=== PATIENT | female | born 1955 | race Caucasian/White ===

== ENCOUNTER → 2016-08-06 | Outpatient (CLI) | payer OTHER ==
--- NOTE | 2016-08-06 17:09 | CONS ---
DATE OF CONSULTATION: REASON FOR CONSULTATION: Sleep apnea. This is a 61-year-old female patient with known history of extensive environmental allergies and previous episodes of anaphylaxis coming in for a few episodes of apneas, where she woke up from sleep stating that her throat was completely closed and she was gasping for air. This is a new symptom and she has never had symptoms similar to this before. She drinks around 2 to 4 glasses of wine every week, and she is not able to make an association between these apneic events and her alcohol drinking. She prefers to sleep on her back. She has gained approximately 7 pounds over the past one year. She has occasional snoring. She typically goes to bed between 9 and 10 p.m. and she wakes up at 6:45 a.m. in the morning. She was working in [place] and she had a long commute between [place] and [place] on a daily basis; at times she has pulled into a rest area to take a nap, as the patient would feel very tired and fatigued. She has never been involved in a motor vehicle accident, never been diagnosed having any sleep breathing disorder. No restlessness in the lower extremities. No family history of obstructive sleep apnea. No other complaints otherwise. PAST MEDICAL HISTORY: 1. Atopic disease with multiple environmental allergies, including ALLERGY TO DUST, MOLD, POLLEN, ANIMAL DANDRUFF, TREES. 2. Single episode of anaphylaxis; exact etiology has not been clear, although this is suspected to be related to mold exposure. Past surgical history includes: 1. Dental implant. 2. Resection of a ganglion cyst. DRUG ALLERGIES: NOT KNOWN. Outpatient medication list includes: 1. Multivitamin. 2. Melatonin. 3. Biotin. 4. Vitamin B. 5. Vitamin C. 6. Fish oil. 7. Calcium. 8. Benadryl as needed. SOCIAL HISTORY: Nonsmoker. No history of alcohol. No history of IV drugs. FAMILY HISTORY: Noncontributory. REVIEW OF SYSTEMS: Twelve-point review of systems was done, and the positive findings were all mentioned above in the history of present illness. BP is 134/82, pulse 72, respiratory rate 16, temperature 98.1, saturation 96% on room air. Weight is 189. Height is 5 feet 3 inches. BMI is 33.4. Neck size is 14-1/2. GENERAL APPEARANCE: Calm, comfortable. HEENT: Mallampati class IV. There is no goiter or neck masses. LUNGS: Clear to auscultation. HEART: Heart sounds are regular rate and rhythm. Normal S1, S2. ABDOMEN: Soft, nontender. No organomegaly. EXTREMITIES: No edema. No cyanosis or clubbing. IMPRESSION: 1. Obstructive sleep apnea suspected. The patient was involved in 2 episodes of apneas where she felt her throat close. She has also some degree of hypersomnia and sleepiness, although her [place] score is only 6. 2. Body mass index of 33.4. 3. Atopic disease with multiple environmental allergies. 4. History of anaphylaxis. PLAN: There is some degree of suspicion that the patient may have an underlying obstructive sleep apnea. She was asked to lose weight. She was asked to sleep in a sidewise body position. Strictly no alcohol drinking, especially 3 to 4 hours prior to bedtime. Proceed with a home sleep study to investigate this patient further for any sleep breathing disorder and treat accordingly.
== END | disposition home or self-care (01) ==
CPT/HCPCS: 99211

== ENCOUNTER → 2017-11-21 | Outpatient (CLI) | payer BC ==
--- NOTE | 2017-11-24 13:56 | MM ---
Reason for exam: screening (asymptomatic). Last mammogram was performed 1 year and 5 months ago. History: Patient is postmenopausal and is nulliparous. Family history of breast cancer in mother at age 50. Physical Findings: A clinical breast exam by your physician is recommended on an annual basis and results should be correlated with mammographic findings. MG 3D Screening Mammo W/Cad Bilateral CC and MLO view(s) were taken. Prior study comparison: July 05, 2016, bilateral MG 3d screening mammo w/cad. June 30, 2015, mammogram, performed at [facility]. The breast tissue is heterogeneously dense. This may lower the sensitivity of mammography. Finding: There are typically benign circumscribed masses in both breasts back to 2015. No suspicious abnormality. No significant changes in finding since July 05, 2016 and June 30, 2015. ASSESSMENT: Benign, BI-RAD 2 RECOMMENDATION: Routine screening mammogram of both breasts in 1 year.
== END | disposition home or self-care (01) ==
LOC: RADMAMWWP 17:02
PROVIDERS: ATTEND Internal Medicine
DX: Z12.31 Encounter for screening mammogram for malignant neoplasm of breast (principal)
CPT/HCPCS: 77063; 77067

== ENCOUNTER → 2018-02-25 | Outpatient (CLI) | payer BC ==
--- NOTE | 2018-02-25 11:01 | XR ---
EXAMINATION TYPE: XR chest 2V DATE OF EXAM: 02/25/2018 COMPARISON: 08/16/2014 HISTORY: Newly diagnosed asthma. Shortness of breath. TECHNIQUE: Frontal and lateral views of the chest are obtained. FINDINGS: There is no focal air space opacity, pleural effusion, or pneumothorax seen. The cardiac silhouette size is within normal limits. The osseous structures are intact. Minimal multilevel dege nerative changes of the thoracic spine are seen. IMPRESSION: No acute cardiopulmonary process.
== END | disposition home or self-care (01) ==
LOC: RADXRMAIN 10:26
PROVIDERS: ATTEND Allergy & Immunology
DX: J45.30 Mild persistent asthma, uncomplicated (principal)
CPT/HCPCS: 71046

== ENCOUNTER → 2018-12-04 | Outpatient (CLI) | payer MEDICARE, OTHER ==
--- NOTE | 2018-12-07 13:23 | MM ---
Reason for exam: screening (asymptomatic). Last mammogram was performed 1 year ago. History: Patient is postmenopausal and is nulliparous. Family history of breast cancer in mother at age 50. Physical Findings: A clinical breast exam by your physician is recommended on an annual basis and results should be correlated with mammographic findings. MG 3D Screening Mammo W/Cad Bilateral CC and MLO view(s) were taken. Prior study comparison: November 21, 2017, bilateral MG 3d screening mammo w/cad. July 05, 2016, bilateral MG 3d screening mammo w/cad. The breast tissue is heterogeneously dense. This may lower the sensitivity of mammography. Focal asymmetry 8 o'clock appears more defined. Incompletely disperses on 3D CC images. ASSESSMENT: Incomplete: need additional imaging evaluation, BI-RAD 0 RECOMMENDATION: Special view mammogram of the right breast. (3D spots) If lesion persists on supplemental views, image directed ultrasound is recommended. [facility] will attempt to contact patient to return for supplemental views and ultrasound if indicated.
== END ==
LOC: RADMAMWWP 14:34
PROVIDERS: ATTEND Obstetrics & Gynecology
DX: Z12.31 Encounter for screening mammogram for malignant neoplasm of breast (principal)
CPT/HCPCS: 77063; 77067

== ENCOUNTER → 2018-12-10 | Outpatient (CLI) | payer MEDICARE, OTHER ==
--- NOTE | 2018-12-10 11:09 | MM ---
Reason for exam: additional evaluation requested from abnormal screening. Last mammogram was performed less than 1 month ago. History: Patient is postmenopausal and is nulliparous. Family history of breast cancer in mother at age 50. Took hormonal contraceptives for 19 years beginning at age 19. Physical Findings: Nurse did not find any significant physical abnormalities on exam. MG 3D Work Up W/Cad RT Spot compression CC, spot compression MLO, and LM view(s) were taken of the right breast. Prior study comparison: December 04, 2018, bilateral MG 3d screening mammo w/cad. November 21, 2017, bilateral MG 3d screening mammo w/cad. Finding: There is a 9 mm irregular mass in the upper outer quadrant of the right breast. These results were verbally communicated with the patient and result sheet given to the patient on 12/10/18. ASSESSMENT: Incomplete: need additional imaging evaluation, BI-RAD 0 RECOMMENDATION: Ultrasound of the right breast.
--- NOTE | 2018-12-10 11:11 | USB ---
Reason for exam: additional evaluation requested from abnormal screening. History: Patient is postmenopausal and is nulliparous. Family history of breast cancer in mother at age 50. Took hormonal contraceptives for 19 years beginning at age 19. US Breast Workup Limited RT Right limited breast ultrasound including focal area of concern, retroareolar and axilla demonstrates a 0.5 x 1.4 x 0.8cm mixed lesion at 10 o'clock. Clip post biopsy. These results were verbally communicated with the patient and result sheet given to the patient on 12/10/18. ASSESSMENT: Suspicious, BI-RAD 4 RECOMMENDATION: Ultrasound core biopsy of the right breast. Called Dr. Becker with mammographic findings and has scheduled an appointment for the patient for 01/08/19 at 2:[address] Sweet. Biopsy scheduled for 01/11/19 at 12:20. PRELIMINARY REPORT CALLED AND FAXED TO DR. SWEET ON 12/10/18.
== END | disposition home or self-care (01) ==
LOC: RADMAMWWP 09:02
PROVIDERS: ATTEND Obstetrics & Gynecology
DX: R92.8 Other abnormal and inconclusive findings on diagnostic imaging of breast (principal)
CPT/HCPCS: 77065; 76642; G0279; 77061

== ENCOUNTER → 2018-12-24 | Outpatient (CLI) | payer MEDICARE, OTHER ==
[2018-12-24 13:19] VITALS: BP 116/73; PULSE 71; RESP 16; TEMP 97.7
--- NOTE | 2018-12-24 13:57 | P.GSHP ---
History of Present Illness H&P Date: 12/24/18 Chief Complaint: Mammogram and ultrasound abnormality right breast from November 2018 xrays The patient is a 63 year old white female with a complaint of a radiographic abnormality of the right breast. The patient does not feel anything of concern in the breast. No nipple discharge or skin changes. No pain in her breast. The patient had her first bilateral mammogram on 12-04-18, followed by a diagnostic mammogram on 12-10-18, as well as an ultrasound of that side. The ultrasound revealed a 1.4 com lesion for which biopsy was recommended. The patient does not compain of any pin, nipple discharge, or skin changes. She has no history of any pain or infection in her breast. Family History: 1. mother: breast cancer in 50's 2. father: skin cancer, melanoma 3. sister: skin cancer, melanoma Hormonal History: menarche: 12 , 1 miscarriage menopause: 43 BCP: 25 years hormones: 3 months Past Surgical History: 1. tonsil 2. hemorrhoid Medical History: none Social History: smoke: none alcohol: 3 times/week (beer, vodka-2) drugs: none - Constitutional Constitutional: Reports sweats - EENT Comment: wears glasses Eyes: bilateral blurred vision, denies pain Ears: deny: decreased hearing, tinnitus Ears, nose, mouth and throat: Denies headache, Denies sore throat - Breasts Breasts: bilateral: as per HPI - Cardiovascular Cardiovascular: Denies chest pain, Denies shortness of breath - Respiratory Respiratory: Denies cough, Denies 7 - Gastrointestinal Gastrointestinal: Denies abdominal pain, Denies diarrhea, Denies nausea, Denies vomiting - Genitourinary (Female) Genitourinary: Denies dysuria, Denies hematuria - Menstruation Menstruation: Reports postmenopausal - Musculoskeletal Comment: arthritis - Integumentary Comment: Reynauds syndrome Integumentary: Denies pruritus, Denies rash - Neurological Neurological: Denies numbness, Denies weakness - Psychiatric Psychiatric: Denies anxiety, Denies depression - Endocrine Endocrine: Reports weight change - Hematologic/Lymphatic Comment: none - Allergic/Immunologic Allergic/Immunologic: Reports as per HPI, Reports seasonal allergies Past Medical History History of Any Multi-Drug Resistant Organisms: None Reported Smoking Status: Never smoker Medications and Allergies Allergies Allergy/AdvReac Type Severity Reaction Status Date / Time acetaminophen [From Vicodin] Allergy Anaphylaxis Verified 07/05/16 09:08 diazepam [From Valium] Allergy Rash/Hives Unverified 12/24/18 13:25 hydrocodone [From Vicodin] Allergy Anaphylaxis Verified 07/05/16 09:08 latex Allergy Anaphylaxis Verified 07/05/16 09:08 mold Allergy Anaphylaxis Verified 07/05/16 09:08 Surgical - Exam Vital Signs Temp Pulse Resp BP Pulse Ox 97.7 F 71 16 116/73 98 12/24/18 13:08 12/24/18 13:08 12/24/18 13:08 12/24/18 13:08 12/24/18 13:08 BMI 30 - General well developed, well nourished, no distress - Eyes normal ocular movement - ENT normal pinna, no hearing loss - Neck no masses, trachea midline - Respiratory normal expansion, normal respiratory effort, clear to auscultation - Cardiovascular Rhythm: regular Heart Sounds: normal: S1, S2 - Abdomen Abdomen: soft, non tender, no guarding, no rigid, no rebound - Integumentary normal turgor - Neurologic no disoriented, no combative - Musculoskeletal normal gait, normal posture - Psychiatric oriented to time, oriented to person, oriented to place, speech is normal, memory intact breast exam: right breast: multipositional exam no dominate masses or nodules of concern, fibrocystic changes right axilla: no adenopathy of concern left breast: multipositional exam no dominate masses or nodules of concern, fibrocystic changes left axilla: no adenopathy of concern Results mammogram and ultrasound reviewed Assessment and Plan Assessment: Impression: 1. abnormal mammogram 2. abnormal ultrasound of the right breast 3. family history of breast cancer 4. family history of cancer 5. fibrocystic breast changes 6. reynalds syndrome Plan: 1. ultrasound core biopsy of the right breast, follow up after biopsy 2. medical management of medical problems CC: Dr. Swartz
== END ==
LOC: WWCWWP 13:07
PROVIDERS: ATTEND Surgery
DX: Z53.9 Procedure and treatment not carried out, unspecified reason (principal)

== ENCOUNTER → 2019-01-11 | Day surgery (SDC) | payer MEDICARE, OTHER ==
[2019-01-11 12:04] VITALS: RESP 16; TEMP 98.1; BMI 66.2
[2019-01-11 14:14] VITALS: BP 130/78; PULSE 78
--- NOTE | 2019-01-11 15:38 | USB ---
EXAMINATION TYPE: US biopsy breast VAD RT, MG diagnostic mammo RT wo CAD DATE OF EXAM: 01/11/2019 CLINICAL HISTORY: 63-year-old female abnormal mammogram, referred for ultrasound-guided breast biopsy. TECHNIQUE: Ultrasound guided core biopsy of the right breast. COMPARISON: 12/07/2018 and 12/10/2018 FINDINGS: The procedure of ultrasound guided core biopsy was explained to the patient. Benefits, alternatives, and risks were discussed. An informed consent was then obtained. The patient was placed in supine positioning for imaging and for the procedure. The overlying skin was prepped and draped in usual sterile fashion. Lidocaine was used as anesthetic into the skin and subcutaneous tissue up to area of concern in the 10:00 right breast. Under ultrasound guidance, a 13-gauge vacuum-assisted mammotome Elite biopsy gun was used to obtain 7 core samples. Following this, a coil clip was left in lesion. There was great difficulty in advancing the needle through the lesion. The transducer had to be discarded. The patient tolerated the procedure well without any immediate complication. The patient was kept in the radiology department for short stay after the procedure and then discharged home in stable condition. Post procedure mammogram shows clip positioned at the site of initially questioned mammographic asymmetry. IMPRESSION: Successful, uncomplicated ultrasound guided core biopsy of area of concern in the 10:00 right breast correlating to the mammographic asymmetry, full pathology results to follow. Given the difficulty in advancing the needle through the lesion, a dense island of fibroglandular tissue is favored. Pathology Results: Benign RIGHT BREAST, NEEDLE CORE BIOPSY: Benign breast parenchyma consistent with fibrocystic spectrum changes. Focal mineralizations are not identified. Recommendation Follow up mammogram of the right breast in 6 months. SIMBA
== END | disposition home or self-care (01) ==
LOC: RADUSWWP 11:17
PROVIDERS: ATTEND Surgery
DX: R92.8 Other abnormal and inconclusive findings on diagnostic imaging of breast (principal)
CPT/HCPCS: 88305; 77065; 19083; A4648; J2001

== ENCOUNTER → 2019-05-13 | Outpatient (CLI) | payer MEDICARE ==
--- NOTE | 2019-05-14 07:41 | BD ---
EXAMINATION TYPE: Axial Bone Density DATE OF EXAM: 05/13/2019 COMPARISON: NONE CLINICAL HISTORY: 63 YR OLD FEMALE....ICD-10 CODE: Z78.0 POST MENOPAUSAL Height: 63 Weight: 186 FRAX RISK QUESTIONS: Glucocorticoids (More than 3mos): YES (Ex: prednisone, prednisolone, methylprednisolone, dexamethasone, and hydrocortisone). RISK FACTORS HISTORY OF: Family History of Osteoporosis: YES, MOTHER AND FATHER, NO HIP FX Postmenopausal woman: YES, AT AGE 50 YRS OLD Take estrogen and/or progesterone medications: YES, CREAM ONLY, FOR A WHILE ONLY....NONE NOW Hyperparathyroidism: NO Adrenal Insufficiency: NO MEDICATIONS: Prednisone or other steroids: ALLERGIES, AND INHALER ON AND OFF FOR THIS How Long: MANY YRS Additional Medications: VIT D AND CALCIUM, MOVE FREE OTC SUPPLEMENT.. Additional History: HX OF SEASONAL DEPRESSIVE DISORDER, RIENAUDS SYNDROM EXAM MEASUREMENTS: Bone mineral densitometry was performed using the Breeze System. Bone mineral density as measured about the Lumbar spine is: ----- L1-L4(G/cm2): 1.001 T Score Values are as follows: ----- L1: -1.1 ----- L2: -1.8 ----- L3: -1.6 ----- L4: -1.4 ----- L1-L4: -1.5 Bone mineral density IS THE FIRST HERE AT [facility] Bone mineral density about the R hip (g/cm2): 0.910 Bone mineral density about the L hip (g/cm2): 0.877 T Score values are as follows: -----R Neck: -1.1 -----L Neck: -1.2 -----R Total: -0.8 -----L Total: -1.0 Bone mineral density IS THE FIRST DEXA STUDY FOR PT AT [facility] FRAX%s: THERE IS A 12.8% CHANCE FOR A MAJOR OSTEOPOROTIC FX AND A 1.3% FOR HIP.....PROBABILITY FOR FX IN 10 YRS TIME IMPRESSION: Osteopenia (T Score between -2.5 and -1). There is slightly increased risk of fracture and the patient may be considered for treatment. Re-Screen 2-5 years. NOTE: T-SCORE=SD OF THE YOUNG ADULT MEAN.
== END | disposition home or self-care (01) ==
LOC: RADBDWWP 15:20
PROVIDERS: ATTEND Obstetrics & Gynecology
DX: M85.80 Other specified disorders of bone density and structure, unspecified site (principal); Z78.0 Asymptomatic menopausal state
CPT/HCPCS: 77080

== ENCOUNTER → 2019-07-14 | Outpatient (CLI) | payer MEDICARE ==
--- NOTE | 2019-07-15 10:37 | MM ---
Reason for exam: follow-up at short interval from prior study. Last mammogram was performed 6 months ago. History: Patient is postmenopausal and is nulliparous. Family history of breast cancer in mother at age 50. Benign US biopsy breast VAD RT of the right breast, January 11, 2019. Took hormonal contraceptives for 19 years beginning at age 19. Physical Findings: Nurse did not find any significant physical abnormalities on exam. MG 3D Diag Mammo W/Cad RT CC and MLO view(s) were taken of the right breast. Prior study comparison: January 11, 2019, right breast MG diagnostic mammo RT wo CAD. December 10, 2018, right breast MG 3d work up w/cad RT. The breast tissue is heterogeneously dense. This may lower the sensitivity of mammography. There are benign appearing round calcifications in the right breast. Previous mammotome biopsy in the right breast. There is no discrete abnormality. These results were verbally communicated with the patient and result sheet given to the patient on 07/14/19. ASSESSMENT: Benign, BI-RAD 2 RECOMMENDATION: Return to routine screening mammogram schedule for both breasts.
== END | disposition home or self-care (01) ==
LOC: RADMAMWWP 13:30
PROVIDERS: ATTEND Obstetrics & Gynecology
DX: N60.11 Diffuse cystic mastopathy of right breast (principal)
CPT/HCPCS: 77065; G0279; 77061

== ENCOUNTER → 2019-07-19 | Outpatient (CLI) | payer MEDICARE ==
--- NOTE | 2019-07-19 15:42 | XR ---
EXAMINATION TYPE: XR chest 2V DATE OF EXAM: 07/19/2019 COMPARISON: 02/25/2018 HISTORY: 64-year-old female with cough TECHNIQUE: Frontal and lateral views FINDINGS: The cardiomediastinal silhouette, aorta, and pulmonary vasculature are within normal limits. Mild nelson tral peribronchial cuffing. Stringy atelectasis lower lungs. No consolidation or pleural effusion. IMPRESSION: Some mild central peribronchial cuffing could reflect bronchitis or asthma. Otherwise, no acute cardi opulmonary process.
== END | disposition home or self-care (01) ==
LOC: RADXRMAIN 12:32
PROVIDERS: ATTEND Otolaryngology
DX: J98.09 Other diseases of bronchus, not elsewhere classified (principal)
CPT/HCPCS: 71046

== ENCOUNTER 2020-03-06 14:12 | Emergency (ER) | payer OTHER ==
[2020-03-06 14:30] VITALS: BP 122/76; PULSE 80; RESP 20; TEMP 98.5
--- NOTE | 2020-03-06 15:15 | ED ---
General Adult HPI - General Chief complaint: Head Injury Stated complaint: [facility]-Head Injury Time Seen by Provider: 03/06/20 14:40 Source: patient, RN notes reviewed Mode of arrival: ambulatory Limitations: no limitations - History of Present Illness Initial comments: 64-year-old female presents to the emergency department for a chief complaint of head injury. Patient reports that she was at work on Friday when the crank of a boat hoist hit her in the head and nose. Patient reports that she has had nasal bridge pain and a headache. Patient reports that it broke her glasses. No visual changes. Patient's boss wanted her to be evaluated for this injury. Patient does not take blood thinners.Patient has no other complaints at this time including shortness of breath, chest pain, abdominal pain, nausea or vomiting, or visual changes. - Related Data Home Medications Medication Instructions Recorded Confirmed diphenhydrAMINE [Benadryl] 25 mg PO Q12HR PRN 01/11/19 01/11/19 Allergies Allergy/AdvReac Type Severity Reaction Status Date / Time acetaminophen [From Vicodin] Allergy Anaphylaxis Verified 03/06/20 14:30 diazepam [From Valium] Allergy Rash/Hives Verified 03/06/20 14:30 hydrocodone [From Vicodin] Allergy Anaphylaxis Verified 03/06/20 14:30 latex Allergy Anaphylaxis Verified 03/06/20 14:30 mold Allergy Anaphylaxis Verified 03/06/20 14:30 Review of Systems ROS Statement: Those systems with pertinent positive or pertinent negative responses have been documented in the HPI. ROS Other: All systems not noted in ROS Statement are negative. Past Medical History Additional Past Medical History / Comment(s): RAYNAUDS. SEASONAL ALLERGIES History of Any Multi-Drug Resistant Organisms: None Reported Additional Past Surgical History / Comment(s): RIGHT THUMB GANGLION CYST Past Anesthesia/Blood Transfusion Reactions: No Reported Reaction Past Psychological History: No Psychological Hx Reported Smoking Status: Never smoker Past Alcohol Use History: Occasional Past Drug Use History: None Reported General Exam Limitations: no limitations General appearance: alert, in no apparent distress Head exam: Present: atraumatic (no obvious contusions), normocephalic, normal inspection Eye exam: Present: normal appearance, PERRL, EOMI. Absent: scleral icterus, conjunctival injection, periorbital swelling ENT exam: Present: normal oropharynx, mucous membranes moist, TM's normal bilaterally, normal external ear exam, other (patient has ecchymosis with edema noted to the nasal bridge, no septal hematoma. Patient denies this bleeding.) Neck exam: Present: normal inspection, full ROM. Absent: tenderness, meningismus, lymphadenopathy Respiratory exam: Present: normal lung sounds bilaterally. Absent: respiratory distress, wheezes, rales, rhonchi, stridor Cardiovascular Exam: Present: regular rate, normal rhythm, normal heart sounds. Absent: systolic murmur, diastolic murmur, rubs, gallop, clicks Neurological exam: Present: alert, oriented X3, normal gait, other (GCS 15) Course Vital Signs 03/06/20 14:24 Temperature 98.5 F Pulse Rate 80 Respiratory 20 Rate Blood Pressure 122/76 O2 Sat by Pulse 97 Oximetry Medical Decision Making - Medical Decision Making CT brain shows no acute intracranial hemorrhage or midline shift. There is no acute displaced facial bone fracture. Acute on chronic paranasal sinus disease noted of which patient is aware of.patient will follow-up with her doctor in one to 2 days. She will return for any worsening symptoms. Disposition Clinical Impression: Head injury, Contusion of nose Disposition: HOME SELF-CARE Condition: Good Instructions (If sedation given, give patient instructions): Head Injury (ED), Nasal Contusion (ED) Additional Instructions: take Tylenol for pain. Ice the area as needed. Follow-up with your doctor for a recheck in the next couple days. If you've any worsening symptoms return to the emergency room. Is patient prescribed a controlled substance at d/c from ED?: No Referrals: Chip Story MD [Primary Care Provider] - 1-2 days Time of Disposition: 15:35
--- NOTE | 2020-03-06 15:24 | CT ---
EXAMINATION TYPE: CT brain wo con, CT facial bones wo con DATE OF EXAM: 03/06/2020 HISTORY: Headache and Nasal bone bruising/pain after injury x2 days ago CT DLP: 1368.4 mGycm. Automated Exposure Control for Dose Reduction was Utilized. TECHNIQUE: CT scan of the head and facial bones are performed without contrast. COMPARISON: None. FINDINGS: There is no acute intracranial hemorrhage or midline shift identified. There is mild diff use ventricular and sulcal prominence consistent with diffuse age-related cerebral atrophy. Jama-whit e matter differentiation is maintained. The calvarium is intact. Persistent anterior metopic suture i s incidentally noted. The mandible is intact. The temporomandibular joints are maintained bilaterally. Nasal bones and brid ge are intact. No overlying suspicious soft tissue swelling. Zygomatic arches are intact. Orbital mendy ors and dennis are intact. The globes are intact bilaterally. Intraconal fat is preserved. Pterygoid p lates are intact. Two adjacent left frontal sinuses with mild mucosal thickening in the lateral inferior one and comple tely opacified medial one. Mucosal thickening and patchy opacification of the left ethmoid sinuses. D ependent fluid in the posterior right ethmoid sinuses. Mild mucosal thickening in the right sphenoid sinus. Mild mucosal thickening in the inferior maxillary sinuses, left greater than right. IMPRESSION: 1. No acute intracranial hemorrhage or midline shift. 2. No acute displaced facial bone fracture. Acute on chronic paranasal sinus disease incidentally not ed as detailed above.
== END 2020-03-06 15:59 | disposition home or self-care (01) ==
LOC: EC 14:12
DX: S00.33XA Contusion of nose, initial encounter (principal); S09.90XA Unspecified injury of head, initial encounter; Z88.5 Allergy status to narcotic agent; Z91.040 Latex allergy status; Z91.048 Other nonmedicinal substance allergy status; W22.8XXA Striking against or struck by other objects, initial encounter; Y93.89 Activity, other specified; Y92.69 Other specified industrial and construction area as the place of occurrence of the external cause; Y99.0 Civilian activity done for income or pay
CPT/HCPCS: 70450; 70486; 99283

== ENCOUNTER → 2021-10-09 | Outpatient (CLI) | payer MEDICARE ==
--- NOTE | 2021-10-09 19:44 | BD ---
EXAMINATION TYPE: Axial Bone Density DATE OF EXAM: 10/09/2021 COMPARISON: 05.13.2019 CLINICAL HISTORY: 66 YR OLD FEMALE.....ICD-10 CODE: M85.80 BD DISORDER Height: 62.2 Weight: 188 FRAX RISK QUESTIONS: Family History (Parent hip fracture): SPINAL FX Glucocorticoids (More than 3mos): YES (Ex: prednisone, prednisolone, methylprednisolone, dexamethasone, and hydrocortisone). RISK FACTORS HISTORY OF: Family History of Osteoporosis: YES, MOTHER WITH FUSION FROM FXS Postmenopausal woman: YES, AT ABOUT 48 YRS OLD Take estrogen and/or progesterone medications: YES, PREMARIN FOR ABOUT 2 YRS, AND ON BCP FOR 20-30 YR S Hyperparathyroidism: NO Adrenal Insufficiency: NO MEDICATIONS: Prednisone or other steroids: YES, FOR, RESCUE INHALER FOR ALLERGIES, LICHEN SCLEROSIS. Additional Medications: STEROIDS, PREDNISONE, VIT D AND CALCIUM, CLOBETASOL, Additional History: ALLERGIES, LICHEN SCLEROSIS CLOBETASOL, PAIN MEDS, NSAIDS , ARTHRITIS, HAND PAIN AND NEUROPATHY, EXAM MEASUREMENTS: Bone mineral densitometry was performed using the [employer] System. Bone mineral density as measured about the Lumbar spine is: ----- L1-L4(G/cm2): 0.964 T Score Values are as follows: ----- L1: -1.8 ----- L2: -1.7 ----- L3: -2.2 ----- L4: -1.7 ----- L1-L4: -1.8 Bone mineral density has: Decreased -2.2% since study of: 05.13.2019 Bone mineral density about the R hip (g/cm2): 0.864 Bone mineral density about the L hip (g/cm2): 0.853 T Score values are as follows: -----R Neck: -1.8 -----L Neck: -1.4 -----R Total: -1.1 -----L Total: -1.2 Bone mineral density has: Decreased -3.8% since study of: 05.13.2019 FRAX%s: GRAPH PROVIDED ILLUSTRATES A 15.6% CHANCE FOR A MAJOR OSTEOPOROTIC FX AND A 2.6% FOR H IP......PROBABILITY FOR FX IN 10 YRS TIME IMPRESSION: Osteopenia (T Score between -2.5 and -1). There is slightly increased risk of fracture and the patient may be considered for treatment. Re-Screen 2-5 years. NOTE: T-SCORE=SD OF THE YOUNG ADULT MEAN.
== END | disposition home or self-care (01) ==
LOC: RADBDWWP 12:29
PROVIDERS: ATTEND Obstetrics & Gynecology
DX: M85.89 Other specified disorders of bone density and structure, multiple sites (principal)
CPT/HCPCS: 77080

== ENCOUNTER 2022-03-06 18:23 | Emergency (ER) | payer MEDICARE, OTHER ==
[2022-03-06 18:58] VITALS: TEMP 98.5
--- NOTE | 2022-03-06 20:33 | ED ---
Back Pain HPI - General Chief Complaint: Extremity Injury, Lower Stated Complaint: hurt butt at work Time Seen by Provider: 03/06/22 19:45 Source: patient, RN notes reviewed Limitations: no limitations - History of Present Illness Initial Comments: This is a 66-year-old female who presents to the emergency department for an injury to her lower back/buttock's. 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 Yesterday at work, she injured her lower back, buttocks, and legs on a dive during practice. She went to occupational health originally and had x- rays obtained. The x-rays were unable to rule out a sacral fracture. She was then instructed to come to the emergency department for a possible computed tomography scan and further evaluation. She has taken Tylenol and Aleve for the pain, unsure if these have been helpful, but states that she can tolerate it. She has also been applying ice, which she states has been beneficial. The pain is exacerbated whenever she is sitting upright or lying on her back. Denies any fevers, chills, sore throat, cough, dyspnea, chest pain, palpitations, abdominal pain, nausea, vomiting, diarrhea, or headaches. MD Complaint: back pain, back injury Onset/Timin -: days(s) Similar Symptoms Previously: No Place: work Worsens With: supine, sitting upright Treatments Prior to Arrival: cold therapy, NSAIDS - Related Data Home Medications Medication Instructions Recorded Confirmed diphenhydrAMINE [Benadryl] 25 mg PO Q12HR PRN 01/11/19 01/11/19 Previous Rx's Medication Instructions Recorded Acetaminophen [Tylenol] 500 mg PO Q4-6H PRN #20 tab 03/06/20 Ibuprofen [Motrin] 600 mg PO Q8HR PRN #20 tab 03/06/20 Allergies Allergy/AdvReac Type Severity Reaction Status Date / Time diazepam [From Valium] Allergy Rash/Hives Verified 03/06/22 18:58 latex Allergy Anaphylaxis Verified 03/06/22 18:58 mold Allergy Anaphylaxis Verified 03/06/22 18:58 Review of Systems ROS Statement: Those systems with pertinent positive or pertinent negative responses have been documented in the HPI. ROS Other: All systems not noted in ROS Statement are negative. Past Medical History Additional Past Medical History / Comment(s): RAYNAUDS , Covid,. SEASONAL ALLERGIES History of Any Multi-Drug Resistant Organisms: None Reported Additional Past Surgical History / Comment(s): RIGHT THUMB GANGLION CYST Past Anesthesia/Blood Transfusion Reactions: No Reported Reaction Past Psychological History: No Psychological Hx Reported Smoking Status: Never smoker Past Alcohol Use History: Occasional Past Drug Use History: None Reported General Exam Limitations: no limitations General appearance: alert, in no apparent distress Head exam: Present: atraumatic, normocephalic, normal inspection Respiratory exam: Present: normal lung sounds bilaterally. Absent: respiratory distress, wheezes, rales, rhonchi, stridor Cardiovascular Exam: Present: regular rate, normal rhythm, normal heart sounds. Absent: systolic murmur, diastolic murmur, rubs, gallop, clicks Rectal exam: Present: other (Bruising over the bilateral gluteus jyotsna, right greater than left.) Extremities exam: Present: other (Tenderness over the bilateral greater trochanters.) Back exam: Present: normal inspection, full ROM. Absent: tenderness Neurological exam: Present: alert, oriented X3, CN II-XII intact Psychiatric exam: Present: normal affect, normal mood Skin exam: Present: warm, dry, intact, normal color. Absent: rash Course Vital Signs 03/06/22 03/06/22 18:55 21:58 Temperature 98.5 F Pulse Rate 89 77 Respiratory 20 16 Rate Blood Pressure 144/80 137/86 O2 Sat by Pulse 96 95 Oximetry Medical Decision Making - Medical Decision Making This is a 66-year-old female who presents to the emergency department for a back injury. X-rays obtained at [facility] reviewed. There was a questionable lucency through the sacrum visualized on x-ray. Computed tomography scan of the pelvis was obtained for further evaluation. No acute irregularities were identified on the computed tomography scan. Advised the patient to continue to apply ice and alternate with ibuprofen and Tylenol as needed for pain relief. Return precautions reviewed in depth, the patient is instructed to return to the emergency department with any new, worsening, or concerning symptoms. Patient verbalized understanding. This case was discussed in detail with the attending ED physician. Presentation, findings, and treatment plan discussed in detail as well. - Radiology Data Radiology results: report reviewed, image reviewed Disposition Clinical Impression: Contusion of sacrum Disposition: HOME SELF-CARE Instructions (If sedation given, give patient instructions): Hip Contusion (ED) Additional Instructions: Return to the emergency department with any new, worsening, or concerning symptoms. Continue to ice the back and alternate with Aleve and Tylenol as needed for pain relief. Try using a doughnut pillow when you are seated to take the pressure off of the sacrum and improve symptoms as well. Is patient prescribed a controlled substance at d/c from ED?: No Referrals: Chip Story MD [Primary Care Provider] - 1-2 days
--- NOTE | 2022-03-06 20:42 | CT ---
EXAMINATION TYPE: CT pelvis wo con CT DLP: 568.1 mGycm, Automated exposure control for dose reduction was used. DATE OF EXAM: 03/06/2022 8:25 PM COMPARISON: A graft same day of the coccyx/sacrum. CLINICAL INDICATION:Female, 66 years old with history of Pain after injury, abnormal x-ray; Pain in b ottom after injury, abnormal x-ray TECHNIQUE: Axial CT of the abdomen . Sagittal and coronal reformats were created on a separate works tation. Contrast used: None Oral contrast used: without Oral Contrast FINDINGS: BLADDER: Unremarkable REPRODUCTIVE: Unremarkable. STOMACH AND BOWEL: No evidence of bowel obstruction. PERITONEUM: No evidence of pneumoperitoneum or free fluid. VASCULATURE: No evidence of aortic aneurysm. MUSCULOSKELETAL: No convincing fracture to correlate with radiographic questionable finding. There is mild multilevel disc degeneration changes throughout the spine. LYMPH NODES: No gross evidence for lymphadenopathy. SOFT TISSUE/ABDOMINAL WALL: Unremarkable IMPRESSION: No evidence of fracture to correlate with questionable finding on recent radiograph. No acute fractur es of the pelvis. Mild multilevel disc degeneration changes.
[2022-03-06 21:59] VITALS: BP 137/86; PULSE 77; RESP 16
== END 2022-03-06 21:59 | disposition home or self-care (01) ==
LOC: EC 18:23
DX: S30.0XXA Contusion of lower back and pelvis, initial encounter (principal); Z88.8 Allergy status to other drugs, medicaments and biological substances; Z91.09 Other allergy status, other than to drugs and biological substances; Z91.040 Latex allergy status; X58.XXXA Exposure to other specified factors, initial encounter; Y93.89 Activity, other specified; Y92.89 Other specified places as the place of occurrence of the external cause; Y99.0 Civilian activity done for income or pay
CPT/HCPCS: 72192; 99283

== ENCOUNTER → 2022-03-06 | Outpatient (CLI) | payer OTHER ==
--- NOTE | 2022-03-06 17:14 | XR ---
EXAMINATION TYPE: XR Hip Bilateral and AP pelvis DATE OF EXAM: 03/06/2022 4:48 PM INDICATION: Patient age:Female; 66 years old; Reason for study: S30.0XXA; COMPARISON: None. TECHNIQUE: The bilateral hip was examined in the frontal and lateral projections and a AP pelvis. FINDINGS: No evidence for acute process, joint dislocation or significant soft tissue swelling. Mild disc space narrowing and osteophyte formation of the acetabulum. Multilevel disc degeneration changes . Pelvic fluid was present. IMPRESSION: 1. No acute process. 2. Mild bilateral hip osteoarthrosis.
--- NOTE | 2022-03-06 17:17 | XR ---
EXAMINATION TYPE: XR sacrum coccyx DATE OF EXAM: 03/06/2022 5:00 PM INDICATION: Patient age:Female; 66 years old; Reason for study: S30.0XXA; COMPARISON: None TECHNIQUE: The pelvis was examined in a single projection. FINDINGS: Questionable lucency through the sacrum seen on frontal view only. There is no soft tissue abnormality. No abnormal calcifications are present. Multilevel degenerative changes of the lower sp ine. Mild degeneration changes of the hips bilaterally. IMPRESSION: Questionable lucency through the sacrum seen on frontal view only. Correlate with point tenderness fo r fracture. Consider CT coccyx/sacrum if clinically warranted for fracture.
== END | disposition home or self-care (01) ==
LOC: RADXRMAIN 16:04
PROVIDERS: ATTEND Emergency Medicine
DX: S30.0XXA Contusion of lower back and pelvis, initial encounter (principal); M16.0 Bilateral primary osteoarthritis of hip
CPT/HCPCS: 72220; 73521

== ENCOUNTER → 2023-01-10 | Outpatient (CLI) | payer MEDICARE ==
[2023-01-10 20:32] LABS: Gliadin AB IgA, Deaminated Negative (Negative); Gliadin AB IgA, Unit 0.5 U/mL; Gliadin AB IgG, Deaminated Negative (Negative); Gliadin AB IgG, Unit <0.4 U/mL
== END | disposition home or self-care (01) ==
LOC: LABWHC1 10:44
PROVIDERS: ATTEND Internal Medicine Gastroenterology
DX: R19.4 Change in bowel habit (principal)
CPT/HCPCS: 36415; 83516

== ENCOUNTER → 2023-06-10 | Outpatient (CLI) | payer OTHER ==
--- NOTE | 2023-06-11 11:02 | MR ---
EXAMINATION TYPE: MR lspine/sacrum wo con DATE OF EXAM: 06/10/2023 3:01 PM CLINICAL INDICATION:Female, 68 years old with history of M54.50 LOW BACK PAIN; M54.16 Radiculopathy; PHH, Low back pain into both sides, Injury -2021 COMPARISON: 03/06/2022 CT and radiograph TECHNIQUE: Multi planar, multi sequence imaging was performed utilizing: T1-weighted, T2-weighted, a nd turbo inversion recovery imaging of the lumbar spine. Additional imaging over the sacrum and pelvis were performed without contrast with multiplanar multi sequence imaging. IV Contrast: cc . (None if empty) FINDINGS: Alignment: The lumbar vertebral bodies have preserved heights with grade 1 anterolisthesis of L4 on L 5. Cord: The conus medullaris and the distal spinal cord appear unremarkable with regards to their signa l intensity and morphology. Bones/Discs: Mild degeneration changes throughout the spine with osteophyte formation and facet joint arthropathy. Few scattered Schmorl's nodes are present most pronounced in the superior endplate of L 2 and inferior endplate of L1. There is inversion recovery signal within the spinous process of L4 an d L5 as well as the ventricles of L4 and L5 bilaterally. Multilevel disc desiccation is present. T12-L1: No evidence of significant spinal canal stenosis or neural foraminal stenosis. L1-L2: No evidence of significant spinal canal stenosis or neural foraminal stenosis. L2-L3: No evidence of significant spinal canal stenosis or neural foraminal stenosis. L3-L4: Disc uncovering from grade 1 anterolisthesis and facet joint arthropathy with mild spinal naun l stenosis and moderate bilateral neural foraminal stenosis. L4-L5: Disc uncovering from grade 1 anterolisthesis and facet joint arthropathy with severe spinal ca nal stenosis and moderate to severe right and moderate left neural foraminal stenosis. L5-S1: The disc is rounded posterior morphology without significant spinal canal stenosis. Facet join t arthropathy with moderate bilateral neural foraminal stenosis. No significant spinal canal or neural foraminal stenosis in the remainder of the visualized levels. Sacrum: Mild degeneration changes of the bilateral sacroiliac joints with some osteophyte formation. There is mild bony edema along the left SI joint. No abnormal bony edema within the sacrum. No eviden ce for mass. Other findings: None. IMPRESSION: 1. Grade 1 anterolisthesis of L4 and L5 with severe spinal canal stenosis. Stress reaction edema in the bilateral pedicles of L4 and L5. This also results in moderate to severe right and moderate left neural foraminal stenosis. 2. Bony edema in the L4-L5 spinous processes correlate for Baastrup's disease. 3. No definitive evidence of disc herniation 4. Multilevel disc degeneration with associated osteoarthritic changes. Moderate bilateral L5-S1 ne ural foraminal stenosis 5. Mild bony edema and degeneration of the SI joints. Left greater than right.
== END | disposition home or self-care (01) ==
LOC: RADMRIMAIN 13:24
PROVIDERS: ATTEND Emergency Medicine
DX: M43.16 Spondylolisthesis, lumbar region (principal); R60.0 Localized edema; M99.73 Connective tissue and disc stenosis of intervertebral foramina of lumbar region; M51.16 Intervertebral disc disorders with radiculopathy, lumbar region; M47.26 Other spondylosis with radiculopathy, lumbar region; M46.1 Sacroiliitis, not elsewhere classified
CPT/HCPCS: 72148; 72195